=== PATIENT | female | born 1960 | race Caucasian/White ===

== ENCOUNTER 2020-09-18 09:02 | Emergency (ER) | payer OTHER ==
[~2020-09-18] VITALS: Ht 160 cm; Wt 75.0 kg
[2020-09-18] MEDS ORDERED: LIPA1CAP8 PO (09:17)
[2020-09-18] MEDS ORDERED: ALOG25TA2 PO (09:17)
[2020-09-18] MEDS ORDERED: MEMA10TA55 PO (09:17)
[2020-09-18] MEDS ORDERED: GLIM1TAB18 PO (09:17)
[2020-09-18] MEDS ORDERED: ATOR-2 PO (09:17)
[2020-09-18 12:03] VITALS: BP 128/72
== END 2020-09-18 12:04 | disposition home or self-care (01) ==
LOC: EMS 09:02
DX: M12.9 Arthropathy, unspecified (principal); M54.2 Cervicalgia; E11.9 Type 2 diabetes mellitus without complications; E78.00 Pure hypercholesterolemia, unspecified; I10 Essential (primary) hypertension
CPT/HCPCS: 71250; 99284

== ENCOUNTER 2021-06-06 13:49 | Emergency (ER) | payer OTHER ==
[~2021-06-06] VITALS: Ht 152.4 cm; Wt 81.8 kg
[~2021-06-06 13:49] MED LIST: ALOG25TA2 PO; ATOR-2 PO; GLIM1TAB18 PO; LIPA1CAP8 PO; MEMA10TA55 PO
[2021-06-06 16:40] VITALS: BP 145/71
== END 2021-06-06 17:25 | disposition home or self-care (01) ==
LOC: EMS 13:49
DX: M25.531 Pain in right wrist (principal); E11.9 Type 2 diabetes mellitus without complications; E78.00 Pure hypercholesterolemia, unspecified; Z79.899 Other long term (current) drug therapy
CPT/HCPCS: 99283

== ENCOUNTER 2021-06-24 04:46 | Emergency (ER) | payer OTHER ==
[~2021-06-24] VITALS: Ht 152.4 cm; Wt 86.4 kg
[2021-06-24 05:10] VITALS: BP 136/63
[2021-06-24 05:17] LABS: GLUCOMETER DEV NAME(LOC) ERT.5; GLUCOSE,POINT OF CARE 173 MG/DL (70-110)
== END 2021-06-24 06:27 | disposition left against medical advice (07) ==
LOC: EMS 04:48
DX: M54.9 Dorsalgia, unspecified (principal); Z53.21 Procedure and treatment not carried out due to patient leaving prior to being seen by health care provider
CPT/HCPCS: 82962